=== PATIENT | male | born 1965 | race American Indian/Alaskan Native ===

== ENCOUNTER 2018-06-25 06:01 | Day surgery (SDC) | payer MEDICAID ==
[~2018-06-25 06:01] MED LIST: ANCEF/STERILE WATER 2 GM/20 ML 2 GM/20 ML SYRINGE IV NR; LACTATED RINGERS 1,000 ML IV SCH; NACL 0.9% 1000 ML 1,000 ML IV SCH; NEURONTIN PO SCH; SUBLIMAZE IV NR; VERSED IV NR
[2018-06-25] MEDS ORDERED: ZEMURON IV ONE ×2 (07:08→09:54)
[2018-06-25] MEDS ORDERED: XYLOCAINE MPF 2% ONE (07:08)
[2018-06-25] MEDS ORDERED: DILAUDID ONE (07:09)
[2018-06-25] MEDS ORDERED: DIPRIVAN 10 MG/ML IV ONE (07:09)
[2018-06-25] MEDS ORDERED: MARCAINE 0.5% INFILTRATI ONE ×3 (07:23→08:36)
[2018-06-25] MEDS ORDERED: XYLOCAINE 1% 20 mL ONE (07:23)
[2018-06-25] MEDS ORDERED: MARCAINE 0.25% INFILTRATI ONE (07:34)
[2018-06-25] MEDS ORDERED: DECADRON ONE ×2 (07:35→09:55)
[2018-06-25] MEDS ORDERED: VERSED ONE (07:43)
[2018-06-25] MEDS ORDERED: SUBLIMAZE ONE (07:43)
--- NOTE | 2018-06-25 07:49 | Short Stay Summary ---
Short Stay Documentation Date of service: 06/25/18 - History H&P: obtained from office - Allergies and Medications Current Medications: Allergies No Known Allergies Allergy (Verified 06/21/18 12:14) Active Medications Gabapentin (Neurontin) 600 mg PO PREOP BELKIS Cefazolin Sodium (Ancef/Sterile Water 2 Gm/20 Ml) 2 gm in 20 mls @ 80 mls/hr IV PREOP NR; Protocol Stop: 06/25/18 23:59 Sodium Chloride (Nacl 0.9% 1000 Ml) 1,000 mls @ 50 mls/hr IV DIRECT BELKIS Lactated Ringer's (Lactated Ringers) 1,000 mls @ 100 mls/hr IV DIRECT BELKIS - Brief post op/procedure progress note Date of procedure: 06/25/18 (Dictation#[id number]) Pre-op diagnosis: BIH Post-op diagnosis: same Procedure: Lap BIH Anesthesia: GETA Findings: Bilateral direct inguinal hernias and right cord lipoma Surgeon: SG KING Estimated blood loss: minimal (<10cc) Pathology: none Condition: stable - Disposition Condition at discharge: Stable Disposition: DC-01 TO HOME OR SELFCARE - Discharge Diagnoses (1) Bilateral inguinal hernia (BIH) Status: Acute Qualifiers: Obstruction and gangrene presence: without obstruction or gangrene Short Stay Discharge Plan Activity: other (No driving while using pain medicine) Diet: regular Wound: open to air, keep clean and dry, other (May shower tomorrow. Pat dry wounds. Apply ice to both groins for 10min - 4-5x/day. Walk daily) Special Instructions: no heavy lifting (or strenuous activity. ) Follow up with: ISAIAH DURAN MD [Primary Care Provider] - 7 Days SG KING MD [Staff Physician] - 14 Days Prescriptions: HYDROcodone/ACETAMINOPHEN [Hydrocodone-Acetamin 5-325 mg] 1 each PO Q6H PRN #30 tablet PRN Reason: Pain , Severe (7-10)
[2018-06-25] MEDS ORDERED: DILAUDID IV PRN (08:04)
[2018-06-25] MEDS ORDERED: XYLOCAINE 1% 20 mL INFILTRATI ONE ×2 (08:36)
[2018-06-25] MEDS ORDERED: NEO SYNEPHRINE/NS Syringe(OR USE) IV ONE (08:39)
--- NOTE | 2018-06-25 09:23 | Anesthesia Consultation ---
Anesthesia Consult and Med Hx Date of service: 06/25/18 - Airway Anesthetic Teeth Evaluation: Good ROM Head & Neck: Adequate Mental/Hyoid Distance: Adequate Mallampati Class: Class III Intubation Access Assessment: Possibly Difficult - Pulmonary Exam CTA: Yes - Cardiac Exam Cardiac Exam: RRR - Pre-Operative Health Status ASA Pre-Surgery Classification: ASA3 Proposed Anesthetic Plan: General Nerve Block: TAP - Pulmonary Hx Smoking: Yes (1 PPD FOR OVER 20 YEARS) Hx Asthma: No Hx Respiratory Symptoms: Yes (bronchitis; occasional albuterol use) - Cardiovascular System Hx Hypertension: Yes Hx Heart Attack/AMI: No - Central Nervous System Hx Seizures: No CVA: No Hx Back Pain: Yes Hx Psychiatric Problems: No - Gastrointestinal Hx Gastroesophageal Reflux Disease: Yes (asymptomatic today) - Endocrine Hx Renal Disease: No Hx Liver Disease: No Hx Insulin Dependent Diabetes: No Hx Thyroid Disease: No - Other Systems Hx Alcohol Use: Yes ([facility]) Hx Substance Use: No - Additional Comments Anesthesia Medical History Comments: No prior anesthetics. No FHx anesthetic complications. Consented for preop TAP block per surgeon request.
--- NOTE | 2018-06-25 09:26 | Anesthesia Day of Surgery ---
Anesthesia Day of Surgery - Day of Surgery Patient Examined: Yes Patient H&P Reviewed: Yes Patient is NPO: Yes
[2018-06-25] MEDS ORDERED: BLOXIVERZ ONE (09:55)
[2018-06-25] MEDS ORDERED: ZOFRAN ONE (09:55)
[2018-06-25] MEDS ORDERED: ROBINUL ONE ×2 (09:55)
[2018-06-25] MEDS ORDERED: TORADOL ONE (09:59)
--- NOTE | 2018-06-25 10:50 | Post Anesthesia Evaluation ---
- Post Anesthesia Evaluation Patient Participated: Yes Airway Patent: Yes Stable Respiratory Function: Yes Nausea/Vomiting: No Temp > 96.8F: Yes Pain Manageable: Yes Adequeate Hydration: Yes Anesthesia Complications: No
[2018-06-25 10:53] VITALS: BP 105/72
--- NOTE | 2018-06-25 11:43 | Operative Report ---
PREOPERATIVE DIAGNOSIS: Bilateral inguinal hernias. POSTOPERATIVE DIAGNOSIS: Bilateral direct inguinal hernias with moderate-sized right cord lipoma. PROCEDURE: Laparoscopic bilateral inguinal herniorrhaphy with mesh. ATTENDING PHYSICIAN: Romeo Caputo MD ANESTHESIA: General. ESTIMATED BLOOD LOSS: Less than 10 mL. FLUIDS: 1300 of crystalloid. FINDINGS: The patient had bilateral gnesr-fs-ojzqdadp sized direct inguinal hernias and a moderate-size cord lipoma on the right. No indirect hernia was identified on the left. Rest of the anatomy was normal. SPECIMENS: None. IMPLANTS: Bard 3DMax mesh, left and right. DRAINS: None. COMPLICATIONS: Stable, transferred to Recovery Room. INDICATIONS: This is a 52-year-old male who presented to the office with complaints of bilateral bulges and pain above the penile area. The patient was assessed to have bilateral inguinal hernias. The patient felt to be a good candidate for a laparoscopic repair. Procedure, risks, benefits were explained to the patient. Risks included but were not limited to infection, bleeding, pain, injury to surrounding structures, possible recurrence, possible need for open surgery, possible need for further procedures in the future, etc. The patient understood and consented. DESCRIPTION OF PROCEDURE: The patient was brought to the operating room and placed in the table in supine position. After adequate general anesthesia established, the patient was prepped and draped in usual sterile fashion. Gabapentin had been administered in the holding area. Two grams of Ancef had been administered in the OR. SCDs were in place. Timeout was performed. We began by making an infraumbilical curvilinear incision. Dissection was carried down and over to the anterior aspect of the right anterior rectus sheath. This was incised transversely. Rectus muscle was identified and mobilized laterally. We developed a space posterior to it. We then placed the balloon dissector underneath, gently passed it down towards the pubic symphysis. Once we reached that area, we then insufflated the balloon under direct visualization. Once we had satisfactory opening of the balloon, we then held it open for 30 seconds to allow for any hemostasis that may be necessary and then slowly deflated it. This was removed and replaced with a balloon port. We placed a 5 mm port in the lower midline and then eventually another one in the right side near the anterior-superior iliac spine after some dissection was done in that area. Overall, we had a fairly good dissection with the balloon on the right side. Unfortunately, it pulled down the epigastric vessel slightly, so that was a little bit in our way, but we were able to work around it. We began by dissecting out the area just medial to the anterior-superior iliac spine and then placed the 5 mm port under direct vision. We dissected out the pubic symphysis and the pubic tubercle and then we slowly proceeded to dissect out the cord structures on the right side. We identified the cord lipoma which we completely reduced. We saw no other significant preperitoneal fat in that area and then we directed our attention to direct inguinal hernia space and indeed, there was preperitoneal fat that was adhered to the floppy inguinal floor. We that completely and then we turned our attention to the left side. We did the same procedure. I would say the direct inguinal hernia on the left side was slightly larger than the right. We completely dissected the preperitoneal fat off the weak inguinal floor. It was similar and weak as in the right. On the left, we found no cord lipoma or indirect inguinal hernia. I was able to clearly identify the peritoneum on both sides and dissected back off the cord structures quite a bit. During our dissection of the peritoneum on the left side, I think we made a small opening such that the abdomen began to insufflate. I placed a Veress needle underneath the left costal margin about 3 fingerbreadths below, lateral to the rectus muscles and then deflated the preperitoneal space, that worked very well. Once our dissection was complete on both sides, we then inserted the 3DMax mesh. I put it in place such that we had very good coverage of both indirect and direct inguinal hernia spaces. I made sure that the peritoneum on both sides was away from the lower edge of the mesh and on the right side where we had a moderate cord lipoma, I made sure that was sitting on top of the mesh. When we desufflated, we held down the edges. We made sure nothing was going underneath the mesh. It appeared to lie very well. I was very pleased with the final appearance and then we slowly desufflated that space. Thereafter, I removed the two retractors that we were using to hold down the inferior edges of the mesh. The ports were removed. Veress needle was removed and then finally removed the camera port. I used a 0 Vicryl stitch to close the anterior rectus sheath with a wtumiw-ba-zwjni stitch. I injected additional local medicine into all port sites. Skin was closed with 4-0 Monocryl subcuticular stitches. Skin was cleaned and dried. The patient tolerated procedure well. There were no complications. All counts were correct at the end of the case. I spoke with his girlfriend, Denise at the end and gave her a full report, she was very appreciative. All questions were answered. JOB# [id number] STAR/JASON
== END 2018-06-25 06:02 | disposition home or self-care (01) ==
LOC: OR 06:01
PROVIDERS: ATTEND Surgery
DX: K40.20 Bilateral inguinal hernia, without obstruction or gangrene, not specified as recurrent (principal); D17.6 Benign lipomatous neoplasm of spermatic cord; F17.210 Nicotine dependence, cigarettes, uncomplicated; I10 Essential (primary) hypertension; K21.9 Gastro-esophageal reflux disease without esophagitis; M19.90 Unspecified osteoarthritis, unspecified site; Z80.8 Family history of malignant neoplasm of other organs or systems; Z98.890 Other specified postprocedural states; Z72.89 Other problems related to lifestyle; Z79.899 Other long term (current) drug therapy
CPT/HCPCS: 49650; C1726; C1781; J0690; J1100; J1170; J1885; J2250; J2370; J2405; J2704; J2710; J3010; J7120

== ENCOUNTER 2021-10-20 20:18 | Emergency (ER) | payer MEDICAID ==
[2021-10-20 20:25] VITALS: BP 136/80
[2021-10-21] MEDS ORDERED: MORPHINE 4 MG/1 ML INJ IV ONE (03:33)
[2021-10-21] MEDS ORDERED: ONDANSETRON 4 MG/2 ML INJ IV ONE (03:33)
[2021-10-21] MEDS ORDERED: SODIUM CHLORIDE 0.9% 1000 ML 1,000 ML IV ONE (03:33)
[2021-10-21] MEDS ORDERED: FAMOTIDINE 20 MG/2 ML INJ IV ONE (03:33)
[2021-10-21 04:20] LABS: Hematocrit 43.7 % (35.5-45.6); Hemoglobin 14.2 gm/dl (11.8-15.2); Mean Corpuscular HGB Conc 33 % (32-34); Mean Corpuscular Volume 84 fl (84-94); Platelet Count 173 K/mm3 (140-440); Red Blood Count 5.22 M/mm3 (3.65-5.03); Red Cell Distribution Width 15.8 % (13.2-15.2)
[2021-10-21 04:30] LABS: Alanine Aminotransferase 41 units/L (7-56); BUN/Creatinine Ratio 10; Blood Urea Nitrogen 8 mg/dL (9-20); Calcium 8.2 mg/dL (8.4-10.2); Hemolysis Index 6
--- NOTE | 2021-10-21 04:35 | Emergency Department Report ---
ED Abdominal Pain HPI - General Chief Complaint: Abdominal Pain Stated Complaint: FLANK PAIN Source: EMS Mode of arrival: Ambulatory Limitations: No Limitations - History of Present Illness Initial Comments: Patient is a 56-year-old -[place] male with a history of hypertension, GERD, chronic osteoarthritis, chronic alcohol abuse and chronic alcoholic pancreatitis who presents to the ED with complaint of acute onset persistent abdominal pain that received the epigastric and mid posterior thoracic area with nausea and vomiting and diarrhea for the last 2 days. Patient admits to having been drinking alcohol and suspects that the pain is likely a flare of his chronic pancreatitis. Patient denies fever, chills, cough, sore throat, dizziness, syncope, chest pain, shortness of breath, dysuria, testicular pain, hematuria, headache, hematemesis, hematochezia or dysuria. MD Complaint: abdominal pain (periumbilical, epigastric), other (nausea, vomiting, diarrhea) -: Sudden, days(s) (2) Location: periumbilical, epigastric Radiation: back (mid-posterior thoracic) Migration to: no migration Severity: severe Severity scale (0 -10): 10 Quality: cramping, sharp Consistency: constant Improves With: nothing Worsens With: nothing Context: other (chronic alcoholic pancreatitis) Associated Symptoms: denies other symptoms, nausea, vomiting, diarrhea, anorexia. denies: fever, chills, constipation, dysuria, hematemesis, hematochezia, melena, hematuria, syncope - Related Data Previous Rx's Medication Instructions Recorded Last Taken Type HYDROcodone/ACETAMINOPHEN 1 each PO Q6H PRN #30 tablet 06/25/18 Unknown Rx [Hydrocodone-Acetamin 5-325 mg] Ciprofloxacin HCl 500 mg PO Q12H #20 tab 10/21/21 Unknown Rx Dicyclomine [Bentyl] 20 mg PO Q6H PRN #30 tablet 10/21/21 Unknown Rx Famotidine [Pepcid] 20 mg PO BID #30 tablet 10/21/21 Unknown Rx Ondansetron [Zofran Odt] 4 mg PO Q6HR PRN #20 tab.rapdis 10/21/21 Unknown Rx Potassium Chloride [K-Dur] 20 meq PO BID #14 tab 10/21/21 Unknown Rx metroNIDAZOLE [Flagyl] 500 mg PO Q8HR #30 tablet 10/21/21 Unknown Rx Allergies Allergy/AdvReac Type Severity Reaction Status Date / Time No Known Allergies Allergy Verified 10/20/21 20:24 ED Review of Systems ROS: Stated complaint: FLANK PAIN Other details as noted in HPI Constitutional: denies: chills, fever Eyes: denies: eye pain, eye discharge, vision change ENT: denies: ear pain, throat pain Respiratory: denies: cough, shortness of breath, wheezing Cardiovascular: denies: chest pain, palpitations Endocrine: no symptoms reported Gastrointestinal: abdominal pain, nausea, vomiting, diarrhea Genitourinary: denies: urgency, dysuria Musculoskeletal: denies: back pain, joint swelling, arthralgia Skin: denies: rash, lesions Neurological: denies: headache, weakness, paresthesias Psychiatric: denies: anxiety, depression Hematological/Lymphatic: denies: easy bleeding, easy bruising ED Past Medical Hx - Past Medical History Hx Hypertension: Yes Hx Heart Attack/AMI: No Hx GERD: Yes Hx Liver Disease: No Hx Renal Disease: No Hx Arthritis: Yes Hx Seizures: No Hx Asthma: No Hx HIV: No Additional medical history: chronic alcoholic pancreatitis - Social History Smoking Status: Current Some Day Smoker - Medications Home Medications: Home Medications Medication Instructions Recorded Confirmed Last Taken Type HYDROcodone/ACETAMINOPHEN 1 each PO Q6H PRN #30 tablet 06/25/18 Unknown Rx [Hydrocodone-Acetamin 5-325 mg] Ciprofloxacin HCl 500 mg PO Q12H #20 tab 10/21/21 Unknown Rx Dicyclomine [Bentyl] 20 mg PO Q6H PRN #30 tablet 10/21/21 Unknown Rx Famotidine [Pepcid] 20 mg PO BID #30 tablet 10/21/21 Unknown Rx Ondansetron [Zofran Odt] 4 mg PO Q6HR PRN #20 tab.rapdis 10/21/21 Unknown Rx Potassium Chloride [K-Dur] 20 meq PO BID #14 tab 10/21/21 Unknown Rx metroNIDAZOLE [Flagyl] 500 mg PO Q8HR #30 tablet 10/21/21 Unknown Rx ED Physical Exam - General Limitations: No Limitations General appearance: alert, in no apparent distress - Head Head exam: Present: atraumatic, normocephalic, normal inspection - Eye Eye exam: Present: normal appearance, PERRL, EOMI Pupils: Present: normal accommodation - ENT ENT exam: Present: normal exam, normal orophraynx, mucous membranes moist, TM's normal bilaterally, normal external ear exam - Neck Neck exam: Present: normal inspection, full ROM - Respiratory Respiratory exam: Present: normal lung sounds bilaterally. Absent: respiratory distress, wheezes, rales, rhonchi, chest wall tenderness, accessory muscle use, decreased breath sounds, prolonged expiratory - Cardiovascular Cardiovascular Exam: Present: regular rate, normal rhythm, normal heart sounds. Absent: systolic murmur, diastolic murmur, rubs, gallop - GI/Abdominal GI/Abdominal exam: Present: soft, tenderness (Palpable periumbilical and epigastric tenderness), guarding, normal bowel sounds. Absent: rebound, hyperactive bowel sounds, hypoactive bowel sounds, mass, bruit - Extremities Exam Extremities exam: Present: normal inspection, full ROM, normal capillary refill - Back Exam Back exam: Present: normal inspection, full ROM. Absent: tenderness, CVA tenderness (R), CVA tenderness (L), muscle spasm, paraspinal tenderness, vertebral tenderness - Neurological Exam Neurological exam: Present: alert, oriented X3, CN II-XII intact, normal gait, reflexes normal - Psychiatric Psychiatric exam: Present: normal affect, normal mood - Skin Skin exam: Present: warm, dry, intact, normal color. Absent: rash ED Course Vital Signs 10/20/21 10/21/21 20:24 03:57 Temperature 98.9 F Pulse Rate 80 Respiratory 16 18 Rate Blood Pressure 136/80 [Left] O2 Sat by Pulse 99 Oximetry ED Medical Decision Making - Lab Data Result diagrams: 10/21/21 03:45 10/21/21 03:45 - Radiology Data Radiology results: report reviewed, image reviewed [address] [address] Cat Scan Report Signed Patient: NARINDER ZAPATA JR MR#: [id number] : 1965 Acct:[id number] Age/Sex: 56 / M ADM Date: 10/20/21 Loc: ED Attending Dr: Ordering Physician: SETH BAKER Date of Service: 10/21/21 Procedure(s): CT abdomen pelvis w con Accession Number(s): [id number] cc: SETH BAKER CT abdomen pelvis w con INDICATION / CLINICAL INFORMATION: Pt states abdominal pain, H/O ETOH associated pancreatitis. TECHNIQUE: Axial CT imaging of abdomen and pelvis was obtained with 100 mL Omnipaque 300 IV contrast. Coronal and sagittal reformatted imaging obtained and reviewed. All CT scans at this location are performed using CT dose reduction for ALARA by means of automated exposure control. COMPARISON: None available. FINDINGS: CT abdomen with IV contrast demonstrates normal appearance of the liver, sp vladimir, pancreas, kidneys, and adrenal glands. No peripancreatic inflammatory change is present. Gallb ladder is unremarkable. The abdominal aorta contains a small amount of plaque and is not aneurysmal. CT pelvis with contrast demonstrates mild enlargement of the prostate gland. No pelvic mass, free fluid, or focal inflammatory changes noted. There are numerous fluid-filled small bowel loops throughout the abdomen and pelvis without significant dilatation. There is slight mucosal enhancement throughout the small bowel. The appearance is most suggestive for infectious enteritis. No free fluid or free air. Normal appendix is present in the right midabdomen. Visualized lung bases are clear. Calcified granuloma is incidentally noted in the right lung base. No acute osseous abnormality. IMPRESSION: 1. Findings highly suggestive for infectious enteritis. Please correlate with clinical symptoms and presentation. 2. No evidence of pancreatitis. Signer Name: Kathy Castillo MD Signed: 10/21/2021 5:10 AM Workstation Name: [id number] Transcribed By: Dictated By: Kathy Castillo MD Electronically Authenticated By: Kathy Castillo MD Signed Date/Time: 10/21/21 0510 DD/ 0506 TD/TT: - Medical Decision Making This is a 56-year-old -[place] male with a history of hypertension, GERD, chronic osteoarthritis, chronic alcohol abuse and chronic alcoholic pancreatitis who presents to the ED with complaint of acute onset persistent abdominal pain that received the epigastric and mid posterior thoracic area with nausea and vomiting and diarrhea for the last 2 days. Patient admits to having been drinking alcohol and suspects that the pain is likely a flare of his chronic pancreatitis. In the ED, patient is alert and oriented x3 and is not in any distress. Patient was treated in the ED for nausea and vomiting, also given pain medications and also received normal saline 1 L IV bolus x1. Lab test results were reviewed and showed acute hypokalemia of 2.9 mmol/L and AST of 75. The rest of the lab test results were nonactionable. The abdomen pelvis CT scan with contrast showed findings highly suggestive for infectious enteritis. Please correlate with clinical symptoms and presentation. No evidence of pancreatitis. Patient was also treated in the ED with Levaquin 500 mg p.o. x1 and discharged home on the same. Patient is alcoholic and therefore the patient was cautioned on the importance of abstaining from alcohol consumption while taking these antibiotics due to potential development of disulfiram effect from his chronic alcoholism and Flagyl administration. Patient was advised to follow-up with his primary care physician in 5 to 7 days for reevaluation, meanwhile maintain a clear liquid diet for 12 to 24 hours while taking medications for nausea and vomiting and pain. Patient is advised return to the ED immediately if symptoms get worse. - Differential Diagnosis chronic pancreatitis; GERD; Gastritis; cholelithiasis Critical care attestation.: If time is entered above; I have spent that time in minutes in the direct care of this critically ill patient, excluding procedure time. ED Disposition Clinical Impression: Abdominal pain in male, Acute hypokalemia, Nausea, vomiting and diarrhea, Enteritis, infectious, presumed Disposition: 01 HOME / SELF CARE / HOMELESS Is pt being admited?: No Does the pt Need Aspirin: No Condition: Stable Instructions: Viral Gastroenteritis, Adult, Essm-uc-Gfbo, Nausea and Vomiting, Adult, Ebfj-ie-Cbah, Diarrhea, Adult, Jasj-bx-Rtnd, Hypokalemia Additional Instructions: All lab test results were reviewed and are all nonactionable except for acute hypokalemia of 2.9 mmol/L. Your lipase levels are normal and therefore your pain is not likely due to the flareup of chronic pancreatitis. Abdomen pelvis CT scan with contrast showed findings suggestive of infectious enteritis. There is no evidence of pancreatitis. Therefore maintain a clear liquid diet for 12 to 24 hours, drink plenty of fluids, take medication as advised for nausea and vomiting, antacids as well antibiotics for suspected infectious enteritis. Avoid alcohol consumption when taking this medications due to serious interaction with alcohol. Follow-up with your primary care physician in 3 to 5 days for reevaluation. Return to the ED immediately if symptoms get worse. Prescriptions: Dicyclomine [Bentyl] 20 mg PO Q6H PRN #30 tablet PRN Reason: Pain , Severe (7-10) Ciprofloxacin HCl 500 mg PO Q12H #20 tab metroNIDAZOLE [Flagyl] 500 mg PO Q8HR #30 tablet Potassium Chloride [K-Dur] 20 meq PO BID #14 tab Famotidine [Pepcid] 20 mg PO BID #30 tablet Ondansetron [Zofran Odt] 4 mg PO Q6HR PRN #20 tab.rapdis PRN Reason: Nausea Referrals: [facility] [Provider Group] - 3-5 Days Time of Disposition: 06:05 Print Language: FAROESE
[2021-10-21] MEDS ORDERED: POTASSIUM CHLORIDE ER 20 MEQ TAB PO ONE (04:36)
--- NOTE | 2021-10-21 05:14 | Cat Scan Report ---
CT abdomen pelvis w con INDICATION / CLINICAL INFORMATION: Pt states abdominal pain, H/O ETOH associated pancreatitis. TECHNIQUE: Axial CT imaging of abdomen and pelvis was obtained with 100 mL Omnipaque 300 IV contrast. Coronal an d sagittal reformatted imaging obtained and reviewed. All CT scans at this location are performed us ing CT dose reduction for ALARA by means of automated exposure control. COMPARISON: None available. FINDINGS: CT abdomen with IV contrast demonstrates normal appearance of the liver, spleen, pancreas, kidneys, a nd adrenal glands. No peripancreatic inflammatory change is present. Gallbladder is unremarkable. The abdominal aorta contains a small amount of plaque and is not aneurysmal. CT pelvis with contrast demonstrates mild enlargement of the prostate gland. No pelvic mass, free flu id, or focal inflammatory changes noted. There are numerous fluid-filled small bowel loops throughout the abdomen and pelvis without significa nt dilatation. There is slight mucosal enhancement throughout the small bowel. The appearance is most suggestive for infectious enteritis. No free fluid or free air. Normal appendix is present in the ri ght midabdomen. Visualized lung bases are clear. Calcified granuloma is incidentally noted in the right lung base. No acute osseous abnormality. IMPRESSION: 1. Findings highly suggestive for infectious enteritis. Please correlate with clinical symptoms and p resentation. 2. No evidence of pancreatitis. Signer Name: Kathy Castillo MD Signed: 10/21/2021 5:10 AM Workstation Name: [id number]
[2021-10-21 05:59] LABS: Basophils % (Manual) 0 % (0.0-1.8); Platelet Estimate Consistent w Auto; RBC Morphology Normal; Total Cells Counted 100
[2021-10-21] MEDS ORDERED: KETOROLAC 30 MG/1 ML INJ IV ONE (06:32)
== END 2021-10-21 07:38 | disposition home or self-care (01) ==
LOC: ED 20:18
DX: R10.9 Unspecified abdominal pain (principal); E87.6 Hypokalemia; R11.2 Nausea with vomiting, unspecified; A09 Infectious gastroenteritis and colitis, unspecified; F17.200 Nicotine dependence, unspecified, uncomplicated; I10 Essential (primary) hypertension
CPT/HCPCS: 36415; 74177; 80053; 83690; 85007; 85025; 96361; 96374; 96375; 99284; J1885; J2270; J2405; J3490; J7030; Q9967; Q0162